=== PATIENT | female | born 1970 | race Asian ===

== ENCOUNTER 2017-06-26 08:50 | Emergency (ER) | payer OTHER ==
[~2017-06-26] VITALS: Ht 157.5 cm; Wt 62.3 kg
[2017-06-26] MEDS ORDERED: TYLENOL WITH C1 EACH PO (12:13)
[2017-06-26 12:48] VITALS: BP 119/88
== END 2017-06-26 12:53 | disposition home or self-care (01) ==
LOC: EME → EDBD 08:50 → EME 08:50
DX: S30.0XXA Contusion of lower back and pelvis, initial encounter (principal); W00.0XXA Fall on same level due to ice and snow, initial encounter
CPT/HCPCS: 72100; 72220; 99281; 99284